=== PATIENT | female | born 1975 | race Caucasian/White ===

== ENCOUNTER → 2021-08-20 07:53 | Outpatient (BNVA) | payer OTHER, SELFPAY | PROVIDERS: PCP Internal Medicine; Visit Provider Nurse Practitioner Family | DX: G43.109 Migraine with aura, not intractable, without status migrainosus (principal); M19.90 Unspecified osteoarthritis, unspecified site; R55 Syncope and collapse | CPT/HCPCS: 99212 ==

== ENCOUNTER → 2021-12-26 09:03 | Outpatient (BNVA) | payer OTHER, SELFPAY | PROVIDERS: PCP Internal Medicine; Visit Provider Nurse Practitioner Family | DX: G43.109 Migraine with aura, not intractable, without status migrainosus (principal); R25.2 Cramp and spasm | CPT/HCPCS: 99212 ==

== ENCOUNTER → 2022-06-05 08:04 | Outpatient (BNVA) | payer OTHER, SELFPAY | PROVIDERS: PCP Internal Medicine; Visit Provider Nurse Practitioner Family | DX: G43.109 Migraine with aura, not intractable, without status migrainosus (principal); H93.19 Tinnitus, unspecified ear; R25.2 Cramp and spasm | CPT/HCPCS: 99212 ==

== ENCOUNTER → 2022-06-22 13:28 | Outpatient (BNVA) | payer OTHER, SELFPAY | PROVIDERS: PCP Internal Medicine; Visit Provider Nurse Practitioner Family | DX: G43.109 Migraine with aura, not intractable, without status migrainosus (principal) | CPT/HCPCS: 99211 ==

== ENCOUNTER → 2022-09-08 08:29 | Outpatient (BNVA) | payer OTHER, SELFPAY | PROVIDERS: PCP Internal Medicine; Visit Provider Nurse Practitioner Family | DX: G43.109 Migraine with aura, not intractable, without status migrainosus (principal); M19.90 Unspecified osteoarthritis, unspecified site; Z79.899 Other long term (current) drug therapy | CPT/HCPCS: 99212 ==

== ENCOUNTER 2023-04-27 14:23 | Outpatient (AMB) | payer OTHER, SELFPAY ==
--- NOTE | 2023-04-27 14:24 | MHC.OFFVIS ---
Intake Vital Signs 04/27/23 14:44 Height 5 ft 5 in Intake Visit Reasons: 4m follow up Migraine Intake Note: Patient presents for 4 month follow up migraine. My migraines are fine Allergies Penicillins Allergy (Mild, Verified 04/27/23 14:44) Hives Medication List - Last Reconciled 04/27/23 by SOFIA Funes cholecalciferol (vitamin D3) (Vitamin D3) 25 mcg PO DAILY fluocinolone acetonide oil 0.01% 0 drps otic (ears) fluticasone propionate 220 mcg/actuation (Flovent HFA) 1 puff inhalation BID galcanezumab-gnlm (Emgality Pen) 120 mg subcut ONCE 28 days magnesium oxide 400 mg PO DAILY 30 days naratriptan 2.5 mg PO Q4H PRN 30 days omeprazole 20 mg PO DAILY propranolol ER 80 mg PO DAILY 30 days riboflavin (vitamin B2) 400 mg PO DAILY 30 days topiramate 50 mg PO BEDTIME 30 days HPI HPI Comments History of Present Illness Details 48-yr-old female presents for f/u visit. Pt denies any significant interval medical changes. However she was just recently learned that she is being laid off from her job. She is doing well with her migraines. She is complaint w/ Emgality, Propranolol, Topiramate. She does still have some bone pain, unclear this is related to the Emgality. Using Excedrin prn. Has not been using Naratriptan as thought she could only take at the 1st sign. Baseline headache characteristics: Initial s/s forehead and lip tingling f/b holocranial more so on the crown, throbbing or dull aching or sharp ice-pick pain. A/w photophobia, phonophobia, nausea, off-balance at x's, tiredness, cognitive difficulties, finger tingling, slurred speech. Current number of typical migraine days per month: 1 migraine day in the past 6 months Average painfulness of these migraines: Mod Current number of non-migraine headache days per month: 1 day per week Average painfulness of these headaches: Mild Current number of days of acute medication use per month: Excedrin- 1 per mild ANTUNEZ day. Migraine- 3 Excedrin and water- helps w/ headache but the associated symptoms. Previous number of migraine days per month prior to starting current preventive tx: daily low-grade migraine headache. PFSH Family History Son Migraines Social History Alcohol intake: current Alcohol intake frequency: a few times a month Patient Tobacco Use Status: Former Tobacco user Quit Date: 2006 Physical Exam Const General: cooperative and no acute distress Orientation/consciousness: patient oriented x3 Resp Effort & Inspection: normal respiratory effort and able to speak in complete sentences Neuro General: patient oriented x3 Cranial nerves: Yes CN's II-XII intact bilaterally Cognition (Neuro): normal cognition Psych Appearance: grossly normal Mental Status: mental status grossly normal Speech and movement: Normal speech and movement present Affect: normal affect Attitude: cooperative Assessment & Plan Assessment & Plan (1) Migraine with aura: Code(s): G43.109 - Migraine with aura, not intractable, without status migrainosus (2) Arthritis: Code(s): M19.90 - Unspecified osteoarthritis, unspecified site Plan For migraine prevention: Continue Emagliaty 120mg sc q 28 days, as pt has had good clinical effect. Continue to monitor bone pain- ? coincidental vs an atypical s/e. Continue Topiramate 50mg qhs- would not increase at this time d/t risk for cognitive s/e's. Continue decreased Propranolol ER 80mg qhs- higher dose causes muscle cramps Continue Riboflavin Continue Magnesium- also to prevent cramps. Previous acute tx trials: Amitriptyline- caused/worsened tinnitus ? For acute migraine tx: OTC Excedrin- may use sparingly. Continue Naratriptan prn- advised may use even if not taken at the very 1st symptom of the migraine, however will work better if taken at the 1st symptom. ? f/u in 6 months or sooner prn Coding Level of Care Code Est Pt Level 4 (71300) Diagnoses Migraine with aura G43.109 Arthritis M19.90
== END 2023-04-27 15:09 | disposition home or self-care (01) ==
PROVIDERS: PCP Internal Medicine; Visit Provider Nurse Practitioner Family
DX: G43.109 Migraine with aura, not intractable, without status migrainosus (principal); M19.90 Unspecified osteoarthritis, unspecified site
CPT/HCPCS: 99214

== ENCOUNTER → 2023-04-27 14:23 | Outpatient (BNVA) | payer OTHER, SELFPAY | PROVIDERS: PCP Internal Medicine; Visit Provider Nurse Practitioner Family | DX: G43.109 Migraine with aura, not intractable, without status migrainosus (principal); M19.90 Unspecified osteoarthritis, unspecified site; Z79.899 Other long term (current) drug therapy | CPT/HCPCS: 99212 ==

== ENCOUNTER 2023-10-25 08:00 | Outpatient (AMB) | payer OTHER, SELFPAY ==
--- NOTE | 2023-10-25 08:17 | A.OFFVIS_ITS ---
Vital Signs 10/25/23 08:36 Height 5 ft 5 in Weight 233 lb BMI 38.8 Intake Visit Reasons: 6 mo f/u-LVM Intake Note: Patient presents for 6 month follow up headaches are better no issues. Allergies Penicillins Allergy (Mild, Verified 10/25/23 08:25) Hives Medication List - Last Reconciled 10/25/23 by SOFIA Funes cholecalciferol (vitamin D3) (Vitamin D3) 25 mcg PO DAILY fluocinolone acetonide oil 0.01% 0 drps otic (ears) fluticasone propionate 220 mcg/actuation (Flovent HFA) 1 puff inhalation BID galcanezumab-gnlm (Emgality Pen) 120 mg subcut ONCE 28 days magnesium oxide 400 mg PO DAILY 30 days naratriptan 2.5 mg PO Q4H PRN 30 days omeprazole 20 mg PO DAILY propranolol ER 80 mg PO DAILY 30 days riboflavin (vitamin B2) 400 mg PO DAILY 30 days topiramate 50 mg PO BEDTIME 30 days HPI Comments Details: 48-yr-old female presents for f/u visit. Pt denies any significant interval medical changes. She has started a new job at [employer]. Has new insurance. [facility] She is hoping to establish care again with a medical weight loss provider. States she previously had sustained wt loss on [employer], however her previous practitioner has retired. Was previously on She is doing well with her migraines. Now having a moderate-severe migraine once every few months. She is complaint w/ Emgality, Propranolol, Topiramate. Not have as much lower back bone pain in the few days following the Emgality injection. Using Excedrin and Naratriptan prn. Baseline headache characteristics: Initial s/s forehead and lip tingling f/b holocranial more so on the crown, throbbing or dull aching or sharp ice-pick pain. A/w photophobia, phonophobia, nausea, off-balance at x's, tiredness, cognitive difficulties, finger tingling, slurred speech. Previous number of migraine days per month prior to starting current preventive tx: daily low-grade migraine headache[facility] Son Migraines Social History Alcohol intake: current Alcohol intake frequency: a few times a month Patient Tobacco Use Status: Former Tobacco user Physical Exam Vital Signs: BMI result Body Mass Index 38.8 Const General: cooperative and no acute distress Orientation/consciousness: patient oriented x3 Resp Effort & Inspection: normal respiratory effort and able to speak in complete sentences Neuro General: patient oriented x3 Cranial nerves: Yes CN's II-XII intact bilaterally Cognition (Neuro): normal cognition Psych Appearance: grossly normal Mental Status: mental status grossly normal Speech and movement: Normal speech and movement present Affect: normal affect Attitude: cooperative Assessment & Plan Assessment & Plan (1) Migraine with aura: Code(s): G43.109 - Migraine with aura, not intractable, without status migrainosus Category: Medical (2) Obesity, Class II, BMI 35-39.9: Code(s): E66.9 - Obesity, unspecified Category: Medical (3) Arthritis: Code(s): M19.90 - Unspecified osteoarthritis, unspecified site Category: Medical Plan For migraine prevention: Continue Emagliaty 120mg sc q 28 days, as pt has had good clinical effect. Continue to monitor bone pain- ? coincidental vs an atypical s/e. Continue Topiramate 50mg qhs- would not increase at this time d/t risk for cognitive s/e's. Continue decreased Propranolol ER 80mg qhs- higher dose causes muscle cramps Continue Riboflavin Continue Magnesium- also to prevent cramps. Previous acute tx trials: Amitriptyline- caused/worsened tinnitus For acute migraine tx: OTC Excedrin- may use sparingly. Continue Naratriptan prn. For desired weight loss: Information shared for [facility]. f/u in 6 months or sooner prn Medications: Changed From propranolol ER 80 mg PO DAILY 30 days 30 caps 6RF To propranolol ER 80 mg PO DAILY 90 days 90 caps 3RF From magnesium oxide may hold for loose stools 400 mg PO DAILY 30 days 30 tabs 6RF To magnesium oxide may hold for loose stools 400 mg PO DAILY 90 days 90 tabs 6RF From riboflavin (vitamin B2) 400 mg PO DAILY 30 days 30 tabs 3RF To riboflavin (vitamin B2) 400 mg PO DAILY 90 days 90 tabs 3RF From topiramate 50 mg PO BEDTIME 30 days 30 tabs 6RF To topiramate 50 mg PO BEDTIME 90 days 90 tabs 3RF Refilled galcanezumab-gnlm (Emgality Pen) 120 mg subcut ONCE 28 days 1 mL 6RF naratriptan do not exceed 2 doses per 24 hrs 2.5 mg PO Q4H 30 days PRN 12 tabs 6RF migraine headache Coding Level of Care Code Est Pt Level 4 (78802) Diagnoses Migraine with aura G43.109 Obesity, Class II, BMI 35-39.9 E66.9 Arthritis M19.90
[2023-10-25 08:36] VITALS: BMI 38.8
== END 2023-10-25 08:56 | disposition home or self-care (01) ==
PROVIDERS: PCP Internal Medicine; Visit Provider Nurse Practitioner Family
DX: G43.109 Migraine with aura, not intractable, without status migrainosus (principal); E66.9 Obesity, unspecified; M19.90 Unspecified osteoarthritis, unspecified site
CPT/HCPCS: 99214

== ENCOUNTER → 2023-10-25 08:00 | Outpatient (BNVA) | payer OTHER, SELFPAY | PROVIDERS: PCP Internal Medicine; Visit Provider Nurse Practitioner Family ==

== ENCOUNTER 2024-11-07 07:57 | Outpatient (AMB) | payer OTHER, SELFPAY ==
[2024-11-07 08:00] VITALS: BP 124/66; PULSE 95; O2SAT 98; BMI 33.4
--- NOTE | 2024-11-07 08:00 | A.OFFVIS_ITS ---
Vital Signs 11/07/24 08:00 Height 5 ft 5 in Weight 200 lb 8 oz BMI 33.4 BP 124/66 Blood Pressure Location Lt brachial Position Sitting Pulse 95 Pulse Source Pulse Oximeter Pulse Oximetry (%) 98 Oxygen Delivery Method Room Air Intake Visit Reasons: Follow up 6mo Intake Note: Patient presents follow up migraine medication. Allergies Penicillins Allergy (Mild, Verified 11/07/24 08:03) Hives HPI Comments Details: 49-yr-old female presents for f/u visit for chronic migraine, post COVID-19. Patient denies any interval medical history changes. She reports experiencing headaches a few times a month, approximately three to four headache days. She previously had Naratriptan, which she has only taken once since her last visit, and reported it worked fine. The patient is currently using Ajovy for migraine management. Emgality was an option, but due to high costs, it was not used. States she is tolerating Ajovy well, in his okay with continuing to usage OB at this time. She is also compliant with topiramate and propranolol. Using Excedrin 2 tabs prn for mild migraine attacks.? Uses naratriptan prn usually for more severe migraine. She has IBS- constipation. Uses a migraine ice cap which helps some. Baseline headache characteristics: Initial s/s forehead and lip tingling f/b holocranial more so on the crown, throbbing or dull aching or sharp ice-pick pain. A/w photophobia, phonophobia, nausea, off-balance at x's, tiredness, cognitive difficulties, finger tingling, slurred speech. PFSH Surgical History H/O colonoscopy Family History Son Migraines Social History Alcohol intake: current Alcohol intake frequency: a few times a month Patient Tobacco Use Status: Former Tobacco user Physical Exam Vital Signs: Last Vital Signs Pulse 95 11/07/24 08:00 BP 124/66 11/07/24 08:00 Pulse Ox 98 11/07/24 08:00 Oxygen Delivery Method Room Air 11/07/24 08:00 BMI result Body Mass Index 33.4 Const General: cooperative and no acute distress Orientation/consciousness: patient oriented x3 Resp Effort & Inspection: normal respiratory effort and able to speak in complete s entences Neuro General: patient oriented x3 Cranial nerves: Yes CN's II-XII intact bilaterally Cognition (Neuro): normal cognition Psych Appearance: grossly normal Mental Status: mental status grossly normal Speech and movement: Normal speech and movement present Affect: normal affect Attitude: cooperative Assessment & Plan Assessment & Plan (1) Migraine with aura: Code(s): G43.109 - Migraine with aura, not intractable, without status migrainosus Category: Medical Qualifiers: Status migrainosus presence: without status migrainosus Intractability: not intractable Qualified Code(s): G43.109 - Migraine with aura, not intractable, without status migrainosus (2) Muscle cramps: Comment: ? induced by increased Propranolol dose Code(s): R25.2 - Cramp and spasm Category: Medical Plan For overall migraine treatment: Reviewed nonpharmacological treatment interventions, such as strategies to reduce photophobia.. Reviewed strategies to reduce photophobia- such as trying migraine specific [place]- 41 blue light blocking glasses, or exposure to GreenLight. For migraine prevention: Emgality order discontinued- co-pay was unaffordable Continue Ajovy 225 mg subcutaneous monthly (alternatively could consider Ajovy 675 mg every 90 days) Continue Topiramate 50mg qhs- would not increase at this time d/t risk for cognitive s/e's. Continue decreased Propranolol ER 80mg qhs- higher dose causes muscle cramps Continue Riboflavin 400 mg daily daily in the morning Continue Magnesium 400mg daily at bedtime- also to prevent cramps. Previous acute tx trials: Amitriptyline- caused/worsened tinnitus. Emgality-was effective, stopped only due to insurance issues. For acute migraine tx: OTC Excedrin- may use sparingly. Continue Naratriptan prn. For desired weight loss: Information previously shared for Personal Primary Care & Weight Loss. f/u in 6 months or sooner prn Coding Level of Care Code Est Pt Level 4 (12831) Diagnoses Migraine with aura and without status migrainosus, not intractable G43.109 Status migrainosus presence: without status migrainosus Intractability: not intractable Muscle cramps R25.2
--- OUTSIDE RECORDS SUMMARY | 2024-11-07 08:00 | XMS_ITS | Clinical Summary ---
Author Organization [facility] Address [address] [place] [address] Phone Care Team Providers Care [place] Worker Name Role Phone Jose Doshi MD Primary Care Provider [phone] Allergies Active Allergy Reactions Criticality Noted Date Comments Gluten 05/05/2024 SENSITIVITY Penicillins 06/29/2005 Other Reaction(s): Hives/Urticaria Medications albuterol HFA (PROAIR HFA ; PROVENTIL HFA ; VENTOLIN HFA) 90 mcg/actuation inhaler Inhale 2 Puffs into the lungs every 6 hours as needed for Cough or Wheezing. 11/25/19 24 Active omeprazole (PriLOSEC) [address] capsule Take 1 capsule (20 mg total) by mouth 1 (one) time each day. 10/26/19 24 Active fluocinolone acetonide oiL 0.01 % drops 5 drops twice daily to affected ear for up to 1 week with flares 06/24/19 22 Active levonorgestre l (MIRENA UTRN) by intrauterine route. Active LORazepam (ATIVAN) 0.5 mg tablet Take 1 Tab by mouth daily as needed for Anxiety for up to 180 days. Use sparingly 06/15/19 21 Active polyethylene glycol (PEG) 17 gram/dose oral powder Take 17 g by mouth 1 (one) time each day. 04/22/19 21 Active naratriptan (AMERGE) 2.5 mg tablet Take 1 Tab by mouth as needed. 2.5 mg at onset of headache, may repeat in 4 hours if needed Active melatonin 5 mg tablet Take 1 tablet (5 mg total) by mouth at bedtime. Active propranoloL (INDERAL) 80 mg tablet Take 1 tablet (80 mg total) by mouth 1 (one) time each day. Active topiramate (TOPAMAX) 25 mg tablet Take 2 tablets (50 mg total) by mouth 1 (one) time each day. Active magnesium oxide (MAG-OX) 400 mg magnesium tablet TAKE 1 TABLET BY MOUTH EVERY DAY HOLD FOR LOOSE STOOLS Active fremanezumab- vfrm (AJOVY) 225 mg/1.5 mL auto-injector Inject into the skin every 30 days Active Breo Ellipta 200-25 mcg/dose inhaler Inhale 1 puff by mouth 1 (one) time each day. 1 each 06/15/19 25 026 Active pravastatin (PRAVACHOL) 20 mg tablet TAKE 1 TABLET(20 MG) BY MOUTH 1 TIME EACH DAY 30 tablet 09/30/19 25 Active phentermine 15 mg capsule Take 1 capsule (15 mg total) by mouth 1 (one) time each day before breakfast. Max Daily Amount: 15 mg 30 capsule 11/01/19 25 025 Active fluticasone furoate (Arnuity Ellipta) 200 mcg/actuation blister with device inhaler Inhale 1 puff by mouth 1 (one) time each day. 11/25/19 24 025 Discontinued fluticasone furoate-vilan teroL (Breo Ellipta) 200-25 mcg/dose inhaler Inhale 1 puff by mouth 1 (one) time each day. 1 each 03/09/20 24 025 Discontinued phentermine 15 mg capsule Take 1 capsule (15 mg total) by mouth 1 (one) time each day before breakfast. Max Daily Amount: 15 mg 30 capsule 10/03/19 25 025 Discontinued(R eorder) Active Problems Problem Noted Date Diagnosed Date Hx of colonic polyp 10/09/2024 Other hyperlipidemia 06/29/2024 Cough variant asthma 04/22/2020 Median neuropathy 11/02/2017 Overview (01/31/2024): EMG (10/27/17): Chronic moderately severe focal median neuropathy at the right wrist these abnormalities could occur with right carpal tunnel syndrome. IBS (irritable bowel syndrome) 08/07/2016 Chronic constipation 06/22/2016 Osteopenia 10/14/2010 Obesity 07/11/2010 GERD (gastroesophageal reflux disease) 0 Allergic rhinitis 06/02/2006 Migraine without aura 07/21/2005 Overview (01/31/2024): IMO update Encounters Date Type Department Care Team Description 10/12/2024 8:00 AM EDT Office Visit Bariatric Surgery - [place] [address] [place] [phone] Tania Morfin PA Obesity (BMI 30-39.9) (Primary Dx) 10/09/2024 4:30 PM EDT Telemedicine Internal Medicine - [facility] [address] [place] [phone] Jose Doshi MD Hyperlipidemia, unspecified hyperlipidemia type (Primary Dx); Cough variant asthma; Hx of colonic polyp; Intractable migraine without aura and without status migrainosus; Screening for cervical cancer from Last 3 Months Immunizations Name Administration Dates Next Due Hepatitis B (Sufxwxy-G-Hqgce , Recombivax HB-Adult) 19yo and older 02/04/2011 Hepatitis B (Recombivax HB-D ialysis) 18yo and older 01/24/2018,01/07/2016,07/09/2011,01/07 Influenza Quadravalent, MDCK , 0.5ml, with preservative (Flucelvax) 6mo and older 12/09/2018 Influenza trivalent, 0.5mL, preservative free (Fluarix; FluLaval; Fluzone) ages 6mo and older (Afluria) 3 years and older 01/24/2018,01/29/2017,01/10/2015,01/17,05/09/2009 MMR, measles mumps and rubel la Live (Priorix; M-M-R II) 12mo and older 03/17/2011,02/11/2011 Pneumococcal polysaccharide 23 valent (Pneumovax 23) 2yo and older 01/11/2015 Td Tetanus diptheria (Tdvax) 7yo and older 06/14/2020 Tdap Tetanus diptheria acell ular pertussis (Boostrix; Adacel) 7yo and older 05/09/2009 Surgical History Surgery Date Site/Laterality Comments ESOPHAGOGASTRODUODENOSCOPY 07/02/2009 PROCEDURE: GA EGD TRANSORAL BIOPSY SINGLE/MULTIPLE; COMMENT: small whitish plaques in esophagus-biopsy:acute esophagitis with fungal and bacterial overgrowth, gastritis-biopsy: mild reactive gastrpathy(HPylori-), Nl duodenum MULTIPLE TOOTH EXTRACTIONS PROCEDURE: HISTORICAL DENTAL EXTRACTION CARPAL TUNNEL RELEASE 2018 Right PROCEDURE: HISTORICAL CARPAL TUNNEL REL Medical History Medical History Date Comments Migraine without aura, witho ut mention of intractable migraine without mention of status migrainosus 07/21/2005 DX:Migraine without aura , without mention of intractable migraine without mention of status migrainosus GERD (gastroesophageal reflux disease) 05/09/2009 DX:GERD (gastroesophageal reflux disease) Obesity 07/11/2010 DX:Obesity Other specified personal his tory presenting hazards to health(V15.89) ?years ago DX:Other specifie d personal history presenting hazards to health(V15.89); COMMENT: had cryo ?dysplasia Chronic constipation 06/22/2016 DX:Chronic constipation IBS (irritable bowel syndrome) 08/07/2016 D X:IBS (irritable bowel syndrome) Median neuropathy 11/02/2017 DX:Median neur opathy Cough variant asthma 04/22/2020 DX:Cough va riant asthma History of COVID-19 06/23/2021 DX:History o f COVID-19; COMMENT: 04/23/21 Family history of ovarian cancer 06/23/2021 DX:Family history of ovarian cancer; COMMENT: Genetic testing negative per patient Hyperlipidemia Other hyperlipidemia 06/29/2024 Family History Medical History Relation Name Comments Ovarian cancer Aunt m aunt Other: brain tumor Maternal Grandfather g reat grandfather Arthritis Maternal Grandmother Breast cancer Maternal Grandmother Arthritis Mother ? RA Macular degeneration Mother Blindness Neg Hx Cataracts Neg Hx Glaucoma Neg Hx Strabismus Neg Hx Relation Name Status Comments Aunt Father unknown Maternal Grandfather Maternal Grandmother Alive Mother Alive Other Social History Tobacco Use Types Packs/Day Years Used Date Smoking Tobacco: Former Cigarettes 0.5 13.1 0 04/05/1993 - 05/09/2006 Smokeless Tobacco: Never Tobacco Cessation:Counseling Given: Not Answered Alcohol Use Standard Drinks/Week Comments Yes 0 (1 standard drink = 0.6 oz pur e alcohol) Housing Instability Answer Date Recorde d Are you worried that in the next 2 months you may not have stable housing? Patient declined 10/02/2024 Food Access & Nutrition Answer Date Rec orded Do you have access to a vari ety of food including fruits and vegetables? Patient declined 10/02/2024 Access to Healthcare Answer Date Record ed Within the last 3 months, ho w many times did you visit the emergency department for your medical care? 0 10/02/2024 Health Literacy Answer Date Recorded How often do you need to hav e someone help you when you read instructions, pamphlets, or other written material from your doctor or pharmacy? Patient declined 10/02/2024 Caregiver: How often do you need to have someone help you when you read instructions, pamphlets, or other written material from your doctor or pharmacy? Not on file 025 Financial Risk Answer Date Recorded How hard is it for you to pa y for the very basics like food, housing, medical care, and air conditioning / heating? Patient declined 10/02/2024 Transportation Answer Date Recorded Has the lack of transportati on kept you from meetings, work, or from getting things needed for daily living? Patient declined 10/02/2024 Has the lack of transportati on kept you from medical appointments or from getting medications? Patient declined 10/02/2024 Social Isolation Answer Date Recorded How often do you feel lonely or isolated from those around you? Patient declined 10/02/2024 Food Risk Answer Date Recorded Within the past 12 months we worried whether our food would run out before we got money to buy more. Patient declined 025 Within the past 12 months th e food we bought just didn't last and we didn't have money to get more. Patient declined 09/05 Dependent Care Answer Date Recorded Do you need help finding or paying for care for your loved ones. For example, early childhood lead teacher or elderly care for an older adult? Patient declined 10/02/2024 Education Answer Date Recorded Do you think completing more education or training, like finishing a GED, going to college, or learning a trade, would be helpful for you? Patient declined 10/02/2024 Employment and Income Answer Date Recor ded During the last four weeks, have you been actively looking for work? Patient declined 10/02/2024 Living Situation Answer Date Recorded What is your living situation? 0 10/02/2024 Interpersonal Safety Answer Date Record ed Physical Abuse 05/05/2024 Verbal Abuse 05/05/2024 Comments No Sex and Gender Information Value Date Recorded Sex Assigned at Female 05/04/2024 3:36 PM EST Legal Sex Female 12:54 AM EST Gender Identity Female 05/04/2024 3:36 PM EST Sexual Orientation Not on file Obstetrics History Para Term AB IAB SAB Ectopic Multiple Livin g Live Births 1 Date Outcome GA Total Labor Labor/2nd/3rd Weight Sex Type Anes PTL Eleni A1 A5 Name Clin Term Last Filed Vital Signs Vital Sign Reading Time Taken Comments Blood Pressure 113/74 10/12/2024 8:05 AM EDT Pulse 80 10/12/2024 8:05 AM EDT Temperature 36.6 C (97.8 F) 10/12/2024 8:05 AM EDT Respiratory Rate 16 05/16/2024 8:40 AM EST Oxygen Saturation 99% 05/16/2024 8:40 AM EST Inhaled Oxygen Concentration - - Weight 93 kg (205 lb) 10/12/2024 8:05 AM EDT Height 162.6 cm (5' 4 ) 10/12/2024 8:05 AM EDT Body Mass Index 35.19 10/12/2024 8:05 AM EDT Plan of Treatment Upcoming Encounters Date Type Department Care Team (Late st Contact Info) Description 02/14/2025 8:00 AM EST Office Visit Bariatric Surgery - [place] [address] [facility] [address] [place] [phone] Tania Morfin PA [address] [facility] [address] [address] [place] [address] Health Maintenance Due Date Last Done Comments Pneumococcal Vaccine: Pediatrics (0 to 5 Years) and At-Risk Patients (6 to 49 Years) (2 of 2 - PCV) 01/12/2016 01/11/2015 HIV Screening 03/14/2022 Hepatitis C Screening 03/14/2022 COVID-19 Vaccine ( season) 2023 05/11/2021, 10/04/2020 Influenza Vaccine (#1) 2024 , 06/12/2023, 12/09/2018, Additional history exists Social Influencers of Health Screening 10/02/2025 10/02/2024 Breast Cancer Screening 06/26/2026 06/27/19 25, 05/03/2023, 04/30/2022, Additional history exists Cervical Cancer Screening: HPV 05/27/2028 05/27/2023 Cholesterol Screening (Lipid Panel) 08/07/2029 08/07/2024, 06/26/2024, 02/29/2024, Additional history exists DTaP,Tdap,and Td Vaccines (3 - Td or Tdap) 06/14/2030 06/14/2020, 05/09/2009 Colorectal Cancer Screening: Colonoscopy 05/05/2031 05/05/2024 MMR Vaccines Aged Out 03/17/2011, 02/11/2011 No lo nger eligible based on patient's age to complete this topic Hepatitis B Vaccines Completed 01/24/2018, 01/07/2016, 07/09/2011, Additional history exists Depression Screening Completed 10/02/2024, 02/10/20 23 HIB Vaccines Aged Out No longer eligi ble based on patient's age to complete this topic HPV Vaccines Aged Out No longer eligi ble based on patient's age to complete this topic Hepatitis A Vaccines Aged Out No long er eligible based on patient's age to complete this topic IPV Vaccines Aged Out No longer eligi ble based on patient's age to complete this topic Meningococcal ACWY Vaccine Aged Out N o longer eligible based on patient's age to complete this topic Meningococcal B Vaccine Aged Out No l onger eligible based on patient's age to complete this topic RSV Immunization Patients Under 20 months Aged Out No longer eligible based on patient's age to complete this topic Varicella Vaccines Aged Out No longer eligible based on patient's age to complete this topic Procedures Procedure Name Priority Date/Time Associated Diagnosis Comments ASPARTATE AMINOTRANSFERASE Routine 08/07/2024 7:46 AM EDT Hyperlipidemia, unspecified hyperlipidemia type ALANINE AMINOTRANSFERASE Routine 08/07/2024 7:46 AM EDT Hyperlipidemia, unspecified hyperlipidemia type LIPID PANEL WITH REFLEX TO DIRECT LDL Routine 08/07/2024 7:46 AM EDT Hyperlipidemia, unspecified hyperlipidemia type MG MAMMO DIGITAL DIAGNOSTIC W ROGELIO BILAT Routine 06/26/2024 8:41 AM EDT Mammographic microcalcification found on diagnostic imaging of breast COLONOSCOPY Routine 05/05/2024 10:32 AM EST Encounter for screening for malignant neoplasm of colon HM HPV Routine 05/27/2023 HM DEPRESSION SCREENING Routine 02/09/2023 from Last 3 Months or Most Recently Relevant to Health Maintenance Results * Lipid panel with reflex to direct LDL (08/07/2024 7:46 AM EDT) Cholesterol 147 0 - 200 mg/dL LAB CHEMISTRY METHOD 08/07/2024 10:14 AM [facility] Triglycerides 123 0 - 150 mg/dL LAB CHEMISTRY METHOD 08/07/2024 10:14 AM [facility] HDL 40 >=40 mg/dL LAB CHEMISTRY METHOD 08/07/2024 10:14 AM [facility] LDL Calculated 82 0 - 100 mg/dL LAB CHEMISTRY METHOD 08/07/2024 10:14 AM [facility] VLDL Cholesterol Isaias 24.6 mg/dL LAB CHEMISTRY METHOD 08/07/2024 10:14 AM [facility] Non HDL Chol. (LDL+VLDL) 107 <145 mg/dL LAB CHEMISTRY METHOD 08/07/2024 10:14 AM [facility] Chol/HDL Ratio 3.7 0.0 - 4.4 LAB CHEMISTRY METHOD 08/07/2024 10:14 AM [facility] Blood Venous blood specimen / Unknown Venipuncture / Unknown 08/07/2024 7:46 AM EDT 08/07/2024 7:47 AM EDT Jose Doshi MD LAB BLOOD ORDERABLES Mercedes l Result Performing Organization Address [facility] Co de Phone Number [facility] [address] [place] [address], [place] [phone] * Alanine aminotransferase (08/07/2024 7:46 AM EDT) ALT (SGPT) 27 10 - 60 unit/L LAB CHEMISTRY METHOD 08/07/2024 10:13 AM EDT [facility] Blood Venous blood specimen / Unknown Venipuncture / Unknown 08/07/2024 7:46 AM EDT 08/07/2024 7:47 AM EDT Jose Doshi MD LAB BLOOD ORDERABLES Mercedes l Result Performing Organization Address [facility] Co de Phone Number [facility] [address] [place] [address], [place] [phone] * Aspartate aminotransferase (08/07/2024 7:46 AM EDT) AST (SGOT) 12 10 - 42 unit/L LAB CHEMISTRY METHOD 08/07/2024 10:13 AM EDT [facility] Blood Venous blood specimen / Unknown Venipuncture / Unknown 08/07/2024 7:46 AM EDT 08/07/2024 7:47 AM EDT Jose Doshi MD LAB BLOOD ORDERABLES Mercedes l Result Performing Organization Address City/[facility]/ZIP Co de Phone Number [facility] [address] [place] [address], [place] [phone] * MG Mammo Digital Diagnostic w Rogelio bilat (06/26/2024 8:41 AM EDT) Anatomical Region Laterality Modality Breast Bilateral Mammography 06/26/2024 8:48 AM EDT Impressions 06/26/2024 8:54 AM EDT Benign. Bilateral screening mammogram in one year is suggested. Findings and recommendations were conveyed to the patient. BI-RADS CATEGORY: 2 - BENIGN RECOMMENDATION: Return to annual mammography. Return to annual mammography. Return to annual mammography. Return to annual mammography. Mammo Location: [facility], [address] [place] [address], [id number], . -------- FINAL REPORT -------- Dictated By: Josefina Jasso Dictated Date: 06/26/2024 08:48 ET Assigned Physician: Josefina Jasso Reviewed and Electronically Signed By: Josefina Jasso Signed Date: 06/26/2024 08:54 ET Workstation ID: [id number] Transcribed By: Self Edit Transcribed Date: 06/26/2024 08:48 ET Narrative 06/26/2024 8:54 AM EDT CLINICAL: 49 years old, Female, one year follow-up left breast microcalcifications. Screening right breast. COMPARISON: Mammograms dating back to 08/24/2017 with most recent of 05/03/2023. FINDINGS: MAMMOGRAPHY TECHNIQUE: Bilateral MLO and CC views were obtained digitally with 3-D mammogram (digital breast tomosynthesis). Computer-aided detection was utilized in evaluation of this exam (CAD). Magnification views of the left breast are also obtained in the CC and ML projections and compared to previous left breast magnification views of 05/03/2023, 04/30/2022, 10/28/2021, and 04/29/2021. There is no evidence of suspicious mass or architectural distortion. Microcalcifications loosely grouped in the upper outer left breast are unchanged.. There has been no significant change from prior exam(s). BREAST DENSITY: B - There are scattered areas of fibroglandular density. Procedure Note Josefina Jasso MD - 06/26/2024 CLINICAL: 49 years old, Female, one year follow-up left breastmicrocalcifications. Screening right breast. COMPARISON: Mammograms dating back to 08/24/2017 with most recent of05/03/2023. FINDINGS: MAMMOGRAPHY TECHNIQUE: Bilateral MLO and CC views were obtained digitally with 3-Dmammogram (digital breast tomosynthesis). Computer-aided detection wasutilized in evaluation of this exam (CAD). Magnification views of theleft breast are also obtained in the CC and ML projections and compared toprevious left breast magnification views of 05/03/2023, 04/30/2022,10/28/2021, and 04/29/2021. There is no evidence of suspicious mass or architectural distortion. Microcalcifications loosely grouped in the upper outer left breast areunchanged.. There has been no significant change from prior exam(s). BREAST DENSITY: B - There are scattered areas of fibroglandular density. IMPRESSION: Benign. Bilateral screening mammogram in one year is suggested. Findingsand recommendations were conveyed to the patient. BI-RADS CATEGORY: 2 - BENIGN RECOMMENDATION: Return to annual mammography. Return to annual mammography. Return toannual mammography. Return to annual mammography. Mammo Location: [facility], [address] [place] [address], [address], . -------- FINAL REPORT -------- Dictated By: Josefina Jasso Dictated Date: 06/26/2024 08:48 ET Assigned Physician: Josefina Jasso Reviewed and Electronically Signed By: Josefina Jasso Signed Date: 06/26/2024 08:54 ET Workstation ID: [id number] Transcribed By: Self Edit Transcribed Date: 06/26/2024 08:48 ET Jenny Barroso CNM IMG BI PROCEDURES Final Resu lt * COLONOSCOPY Anesthesia - MAC; [facility] ENDOSCOPY (05/05/2024 10:32 AM EST) Anatomical Region Laterality Modality Endoscopy 05/05/2024 10:2 0 AM EST Impressions 05/05/2024 10:38 AM EST - One diminutive polyp in the transverse colon, removed with a jumbo cold forceps. Resected and retrieved. - Diverticulosis in the sigmoid colon. - Internal hemorrhoids. - The examination was otherwise normal. Recommendation: - Await pathology results. - Repeat colonoscopy in 7 years for surveillance. - High fiber diet. Narrative 05/05/2024 10:38 AM EST [facility] GI Patient Name: Servando Combs Procedure Date: 05/05/2024 10:20 AM Date of : 1975 Age: 49 Gender: Female Note Status: Finalized Attending MD: Laisha Powell MD, Procedure Date No Time: 05/05/2024 Procedure: Colonoscopy Indications: Screening for colorectal malignant neoplasm Providers: Laisha Powell MD Referring MD: Laisha Powell MD Medicines: Monitored Anesthesia Care Complications: No immediate complications. Estimated blood loss: Minimal. Estimated Blood Loss: Estimated blood loss: Minimal. Procedure: Pre-Anesthesia Assessment: - Prior to the procedure, a History and Physical was performed, and patient medications and allergies were reviewed. The patient is competent. The risks and benefits of the procedure and the sedation options and risks were discussed with the patient. All questions were answered and informed consent was obtained. Patient identification and proposed procedure were verified by the physician, the nurse, the printing and stamping supervisor and the engineering technician in the pre-procedure area in the endoscopy suite. Mental Status Examination: alert and oriented. Airway Examination: normal oropharyngeal airway and neck mobility. Respiratory Examination: clear to auscultation. CV Examination: normal. Prophylactic Antibiotics: The patient does not require prophylactic antibiotics. Prior Anticoagulants: The patient has taken no anticoagulant or antiplatelet agents. ASA Grade Assessment: III - A patient with severe systemic disease. After reviewing the risks and benefits, the patient was deemed in satisfactory condition to undergo the procedure. The anesthesia plan was to use monitored anesthesia care (MAC). Immediately prior to administration of medications, the patient was re-assessed for adequacy to receive sedatives. The heart rate, respiratory rate, oxygen saturations, blood pressure, adequacy of pulmonary ventilation, and response to care were monitored throughout the procedure. The physical status of the patient was re-assessed after the procedure. After I obtained informed consent, the scope was passed under direct vision. Throughout the procedure, the patient's blood pressure, pulse, and oxygen saturations were monitored continuously. The Colonoscope was introduced through the anus and advanced to the cecum, identified by appendiceal orifice and ileocecal valve. The colonoscopy was performed without difficulty. The patient tolerated the procedure well. The quality of the bowel preparation was good. Findings: The perianal and digital rectal examinations were normal. A diminutive polyp was found in the transverse colon. The polyp was sessile. The polyp was removed with a jumbo cold forceps. Resection and retrieval were complete. Estimated blood loss was minimal. A few small-mouthed diverticula were found in the sigmoid colon. Internal hemorrhoids were found during retroflexion. The hemorrhoids were Grade I (internal hemorrhoids that do not prolapse). The exam was otherwise without abnormality. Laisha Powell MD 05/05/2024 10:37:57 AM This report has been signed electronically.Laisha Powell MD Number of Addenda: 0 Note Initiated On: 05/05/2024 10:20 AM Scope Withdrawal Time: 0 hours 6 minutes 9 seconds Scope In: 10:24:18 AM Scope Out: 10:32:12 AM Endoscopy Department at [facility] - [address] [place] [id number] Procedure Note Laisha Powell MD - 05/05/2024 [facility] GI Patient Name: Servando Combs Procedure Date: 05/05/2024 10:20 AM Date of : 1975 Age: 49 Gender: Female Note Status: Finalized Attending MD: Laisha Powell MD, Procedure Date No Time: 05/05/2024 Procedure: Colonoscopy Indications: Screening for colorectal malignant neoplasm Providers: Laisha Powell MD Referring MD: Liasha Powell MD Medicines: Monitored Anesthesia Care Complications: No immediate complications. Estimated blood loss: Minimal. Estimated Blood Loss: Estimated blood loss: Minimal. Procedure: Pre-Anesthesia Assessment: - Prior to the procedure, a History and Physicalwas performed, and patient medications and allergieswere reviewed. The patient is competent. The risks and benefits of the procedure and the sedation optionsand risks were discussed with the patient. Allquestions were answered and informed consent was obtained. Patient identification and proposed procedure were verified by the physician, the nurse, theanesthetist and the engineering technician in the pre-procedure area in the endoscopy suite. Mental Status Examination: alertand oriented. Airway Examination: normal oropharyngeal airway and neck mobility. Respiratory Examination: clear to auscultation. CV Examination: normal. Prophylactic Antibiotics: The patient does notrequire prophylactic antibiotics. Prior Anticoagulants: The patient has taken no anticoagulant or antiplatelet agents. ASA Grade Assessment: III - A patient with severe systemic disease. After reviewing the risksand benefits, the patient was deemed in satisfactory condition to undergo the procedure. The anesthesia plan was to use monitored anesthesia care (MAC). Immediately prior to administration of medications, the patient was re-assessed for adequacy to receive sedatives. The heart rate, respiratory rate, oxygen saturations, blood pressure, adequacy of pulmonary ventilation, and response to care were monitored throughout the procedure. The physical status ofthe patient was re-assessed after the procedure. After I obtained informed consent, the scope was passed under direct vision. Throughout theprocedure, the patient's blood pressure, pulse, and oxygen saturations were monitored continuously. The Colonoscope was introduced through the anus and advanced to the cecum, identified by appendiceal orifice and ileocecal valve. The colonoscopy was performed without difficulty. The patient tolerated the procedure well. The quality of the bowel preparation was good. Findings: The perianal and digital rectal examinations were normal. A diminutive polyp was found in the transversecolon. The polyp was sessile. The polyp was removed with a jumbo cold forceps. Resection and retrieval were complete. Estimated blood loss was minimal. A few small-mouthed diverticula were found in the sigmoid colon. Internal hemorrhoids were found duringretroflexion. The hemorrhoids were Grade I (internal hemorrhoids that do not prolapse). The exam was otherwise without abnormality. Laisha Powell MD 05/05/2024 10:37:57 AM This report has been signed electronically.Laisha Powell MD Number of Addenda: 0 Note Initiated On: 05/05/2024 10:20 AM Scope Withdrawal Time: 0 hours 6 minutes 9 seconds Scope In: 10:24:18 AM Scope Out: 10:32:12 AM Endoscopy Department at [facility] - [address] [place] [id number] IMPRESSION: - One diminutive polyp in the transverse colon, removed with a jumbo cold forceps. Resected and retrieved. - Diverticulosis in the sigmoid colon. - Internal hemorrhoids. - The examination was otherwise normal. Recommendation: - Await pathology results. - Repeat colonoscopy in 7 years for surveillance. - High fiber diet. Laisha Powell MD GI~PROCEDURE ORDERABLES Fin al Result * Cervical Cancer Screening: HPV (05/27/2023) Pathologist [facility] Cervical Cancer Screening: HPV Negative, Abstracted Historical Provider HEALTH MAINTENANCE Final Result * Depression Screening (02/09/2023) Pathologist [facility] Depression Screening Abstracted Historical Provider HEALTH MAINTENANCE Final Result from Last 3 Months or Most Recently Relevant to Health Maintenance Insurance [employer] Care Teams [employer] Worker Relationship Specialty Start Date End Date Jose Doshi MD [address] [place] [id number] PCP - General Internal Medicine 06/21/17
== END 2024-11-07 08:40 | disposition home or self-care (01) ==
LOC: HO.HSMS 07:58
PROVIDERS: PCP Internal Medicine; Visit Provider Nurse Practitioner Family
DX: G43.109 Migraine with aura, not intractable, without status migrainosus (principal); R25.2 Cramp and spasm
CPT/HCPCS: 99214